=== PATIENT | male | born 2000 | race Caucasian/White ===

== ENCOUNTER 2018-03-26 20:42 | Emergency (ER) | payer SELFPAY ==
[2018-03-26 20:47] VITALS: BP 128/77; PULSE 80; TEMP 99.2; BMI 24.0
[2018-03-26] MEDS ORDERED: IBUPROFEN 400 MG TABLET (FP) PO ONE ×2 (21:17→21:22)
[2018-03-26] MEDS ORDERED: DEXAMETHASONE LIQUID 0.5 MG/5 ML 240 ML BULK BOTTLE PO ONE (21:17)
--- NOTE | 2018-03-26 21:18 | PDOC ---
History of Present Illness - General Chief Complaint: Tongue Swelling Stated Complaint: SWELLING TONGUE, SORE THROAT Time Seen by Provider: 03/26/18 21:14 History Source: Patient Exam Limitations: Language Barrier ([facility] [id number]) - History of Present Illness Initial Comments: 03/26/18 21:14 HISTORY OF PRESENT ILLNESS: This is a 17-year-old male without significant medical history of presents emergency Department with 1 week of sore throat who is now concerned as he has white growths in the back of his throat. He denies fevers, chills, abdominal pain, nausea, vomiting, cough. Patient just reports increased pain in his throat and difficulty swallowing. No recent travel or sick contacts. PAST MEDICAL HISTORY: Denies past medical history SURGICAL HISTORY: Denies ALLERGIES: No known drug allergies REVIEW OF SYSTEMS General/Constitutional: Denies fever or chills. Denies weakness, weight change. HEENT: Denies change in vision. Denies ear pain or discharge. +sore throat. Cardiovascular: Denies chest pain or shortness of breath. Respiratory: Denies cough, wheezing, or hemoptysis. Gastrointestinal: Denies nausea, vomiting, diarrhea or constipation. Denies rectal bleeding. Genitourinary: Denies dysuria, frequency, or change in urination. Musculoskeletal: Denies joint or muscle swelling or pain. Denies neck or back pain. Skin and breasts: Denies rash or easy bruising. Neurologic: Denies headache, vertigo, loss of consciousness, or loss of sensation. Psychiatric: Denies depression or anxiety. Endocrine: Denies increased thirst. Denies abnormal weight change. Hematologic/Lymphatic: Denies anemia, easy bleeding, or history of blood clots. Allergic/Immunologic: Denies hives or skin allergy. Denies latex allergy. PHYSICAL EXAM General Appearance: Well-appearing, appropriately dressed. No apparent distress , no intoxication. HEENT: EOMI, PERRLA, normal voice, TMs normal. No conjunctival pallor. No photophobia, scleral icterus. +3 tonsils noted with erythema and exudate present. No lesions noted to the oropharynx. Neck: Supple. Trachea midline. No tenderness, rigidity, carotid bruit, stridor , lymphadenopathy, or thyromegaly. Respiratory/Chest: Lungs CTAB. No shortness of breath, chest tenderness, respiratory distress, accessory muscle use. No crackles, rales, rhonchi, stridor , wheezing, dullness Cardiovascular: RRR. S1, S2. No JVD, murmur, bradycardia, tachycardia. Vascular Pulses: Dorsalis-Pedis (R): 2+, Dorsalis-Pedis (L): 2+ Gastrointestinal/Abdominal: Normal bowel sounds. Abdomen soft, non-distended. No tenderness or rebound tenderness. No organomegaly, pulsatile mass, guarding, hernia, hepatomegaly, splenomegaly. Lymphatic: No adenopathy, tenderness. Musculoskeletal/Extremities: Normal inspection. FROM of all extremities, normal capillary refill. Pelvis Stable. No CVA tenderness. No tenderness to extremities, pedal edema, swelling, erythema or deformity. Integumentary: Appropriate color, dry, warm. 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 Fully oriented, alert. Appropriate mood/affect. Motor strength 5/5. No appreciable EOM palsy, facial droop or sensory deficit. Past History - Past Medical History Allergies/Adverse Reactions: Allergies Allergy/AdvReac Type Severity Reaction Status Date / Time No Known Allergies Allergy Verified 03/26/18 20:47 Home Medications: Ambulatory Orders Amoxicillin - [Amoxicillin 500mg Capsule -] 500 mg PO BID #20 capsule 03/26/18 COPD: No - Suicide/Smoking/Psychosocial Hx Smoking History: Never smoked *Physical Exam - Vital Signs Last Vital Signs Temp Pulse Resp BP Pulse Ox 99.2 F 80 18 128/77 98 03/26/18 20:45 03/26/18 20:45 03/26/18 20:45 03/26/18 20:45 03/26/18 20:45 Medical Decision Making - Medical Decision Making 03/26/18 21:17 A/P: 17-year-old male with sore throat for one week +3 tonsils with erythema and exudates. No lesions present to oral mucosa Tender anterior cervical lymphadenopathy present Symptoms are consistent with a streptococcal infection. I'll perform a rapid strep testing to rule out bacterial etiology versus viral. Motrin 800 mg orally now Decadron 10 mg orally now 03/26/18 21:59 Rapid strep testing is positive for group A strep. I will discharge the patient home with prescription for amoxicillin. Patient verbalized understanding of discharge instructions. *DC/Admit/Observation/Transfer Diagnosis at time of Disposition: Strep pharyngitis - Discharge Dispostion Disposition: HOME Condition at time of disposition: Stable Decision to Admit order: No - Prescriptions Prescriptions: Amoxicillin - [Amoxicillin 500mg Capsule -] 500 mg PO BID #20 capsule - Referrals - Patient Instructions Additional Instructions: Take amoxicillin as prescribed. Salt water garggles. Throw away your toothbrush in 3 days and start using a new toothbrush. No sharing of drinks, utensils or toothbrushes. Take Motrin as directed by oven attendant's instructions. Return to ED for worsening fevers, worsening sore throat, chest pain, shortness of breath or any other concerns. [place] la amoxicilina segn lo prescrito. Grgaras de agua salada. Deseche lewis cepillo de dientes en 3 robison y comience a usar un cepillo de dientes nuevo. No compartir bebidas, utensilios o cepillos de dientes. [place] Motrin zara lo indican las instrucciones del fabricante. Regrese a la ED para empeorar las fiebres, empeorar el dolor de garganta, dolor en el pecho, falta de aliento o cualquier otra inquietud. - Post Discharge Activity Forms/Work/School Notes: Back to Work
[2018-03-26] MEDS ORDERED: DEXAMETHASONE SOD PHOSPHATE 10 MG/1 ML VIAL ONE (21:28)
== END 2018-03-26 22:04 | disposition home or self-care (01) ==
LOC: JERFT 20:42
DX: J02.0 Streptococcal pharyngitis (principal); B95.0 Streptococcus, group A, as the cause of diseases classified elsewhere
CPT/HCPCS: 87070; 87430; 99281-25

== ENCOUNTER 2018-07-06 19:57 | Emergency (ER) | payer SELFPAY ==
--- NOTE | 2018-07-06 20:14 | PDOC ---
Rapid Medical Evaluation Chief Complaint: Pain Time Seen by Provider: 07/06/18 20:10 Medical Evaluation: Allergies Allergy/AdvReac Type Severity Reaction Status Date / Time No Known Allergies Allergy Verified 03/26/18 20:47 07/06/18 20:10 I have performed a brief in-person evaluation of this patient. The patient presents with a chief complaint of: L testicular pain since yesterday with swelling. Pertient physical exam: Non swollen, non erythematous L tender testicle. I have ordered the following: testicular ultrasound R/O torsion The patient will proceed to the ED for further evaluation Discharge Disposition - Diagnosis Testicular pain, left - Referrals - Patient Instructions - Post Discharge Activity
[2018-07-06 20:15] VITALS: BP 140/71; PULSE 85; TEMP 99.3; BMI 22.3
--- NOTE | 2018-07-06 22:01 | PDOC ---
History of Present Illness - General Chief Complaint: Pain Stated Complaint: TESTICULAR PAIN Time Seen by Provider: 07/06/18 20:10 - History of Present Illness Initial Comments: 07/06/18 23:16 17-year-old male complaining of left testicular pain since 5 PM radiating up to the left groin. Denies urinary symptoms denies STI exposure. Denies new partners. Denies urinary symptoms denies flank pain, fevers/chills, nausea, vomiting, abdominal pain. Past History - Past Medical History Allergies/Adverse Reactions: Allergies Allergy/AdvReac Type Severity Reaction Status Date / Time No Known Allergies Allergy Verified 07/06/18 20:15 Home Medications: Ambulatory Orders Amoxicillin - [Amoxicillin 500mg Capsule -] 500 mg PO BID #20 capsule 03/26/18 COPD: No - Suicide/Smoking/Psychosocial Hx Smoking History: Never smoked Have you smoked in the past 12 months: No Information on smoking cessation initiated: No Hx Alcohol Use: No Drug/Substance Use Hx: No *Physical Exam - Vital Signs Last Vital Signs Temp Pulse Resp BP Pulse Ox 99.3 F 85 18 140/71 100 07/06/18 20:10 07/06/18 20:10 07/06/18 20:10 07/06/18 20:10 07/06/18 20:10 - Physical Exam General Appearance: Yes: Appropriately Dressed Gastrointestinal/Abdominal: positive: Normal Bowel Sounds, Soft. negative: Tender Male Genitalia: positive: normal genitalia, testicular tenderness (left testicular tenderness) Musculoskeletal: positive: Normal Inspection. negative: CVA Tenderness Integumentary: positive: Normal Color, Dry, Warm Neurologic: positive: Fully Oriented, Alert, Normal Mood/Affect, Normal Response Moderate Sedation - Procedure Monitoring Vital Signs: Procedure Monitoring Vital Signs Temperature 99.3 F 07/06/18 20:10 Pulse Rate 85 07/06/18 20:10 Respiratory Rate 18 07/06/18 20:10 Blood Pressure 140/71 07/06/18 20:10 O2 Sat by Pulse Oximetry (%) 100 07/06/18 20:10 Medical Decision Making - Medical Decision Making 07/06/18 23:35 all d/c instruction given occitan with nurse . patient verbalized understanding. strict return precautions also reviewed with patient. *DC/Admit/Observation/Transfer Diagnosis at time of Disposition: Testicular pain, left - Discharge Dispostion Disposition: HOME - Referrals Referrals: [facility] [Provider Group] - 24 hours [facility] [Outside] - 24 hours Nael Flowers MD [Staff Physician] - 24 hours - Patient Instructions Printed Discharge Instructions: How to Perform a Testicular Self-exam Additional Instructions: please follow up with a urologist or clinic for reevaluation within 24 hours. take ibuprofen every 6 hours as needed for pain Additional Instructions: * Please call your personal physician to report your Emergency Department visit and to report your progress, if any. * If there is no improvement in symptoms in 2 days call your physician. * Return to the Emergency Department for any worsening symptoms. - Post Discharge Activity Forms/Work/School Notes: Back to Work
[2018-07-06 22:54] LABS: URINE APPEARANCE CLEAR; URINE BILIRUBIN NEGATIVE (<2.0 mg/dL); URINE COLOR STRAW; URINE GLUCOSE (UA) NEGATIVE (NEGATIVE); URINE KETONE NEGATIVE (NEGATIVE); URINE LEUK ESTERASE NEGATIVE (NEGATIVE); URINE NITRITE NEGATIVE (NEGATIVE); URINE PROTEIN NEGATIVE (NEGATIVE); URINE UROBILINOGEN NEGATIVE mg/dL (0.2-1.0)
--- NOTE | 2018-07-06 23:23 | PDOC ---
*Physical Exam - Vital Signs Last Vital Signs Temp Pulse Resp BP Pulse Ox 99.3 F 85 18 140/71 100 07/06/18 20:10 07/06/18 20:10 07/06/18 20:10 07/06/18 20:10 07/06/18 20:10 ED Treatment Course - ADDITIONAL ORDERS Additional order review: Laboratory Results 07/06/18 22:15 Urine Color Straw Urine Appearance Clear Urine pH 8.0 Ur Specific [place] 1.012 Urine Protein Negative Urine Glucose (UA) Negative Urine Ketones Negative Urine Blood Negative Urine Nitrite Negative Urine Bilirubin Negative Urine Urobilinogen Negative Ur Leukocyte Esterase Negative Medical Decision Making - Medical Decision Making 07/06/18 23:23 Patient seen by the advanced practice provider under my direct supervision. Ancillary testing reviewed as necessary. I agree with plan as outlined by the advanced practice provider. *DC/Admit/Observation/Transfer Diagnosis at time of Disposition: Testicular pain, left - Referrals - Patient Instructions - Post Discharge Activity
[2018-07-06] MEDS ORDERED: IBUPROFEN 600 MG TABLET (FP) PO ONE (23:30)
== END 2018-07-07 01:32 | disposition home or self-care (01) ==
LOC: JER 19:57
DX: N50.812 Left testicular pain (principal)
CPT/HCPCS: 36415; 76870-TC; 81003; 87086; 87491; 87591; 99281-25

== ENCOUNTER 2023-10-28 01:40 | Emergency (ER) | payer SELFPAY ==
[2023-10-28 02:00] VITALS: BP 139/86; PULSE 74; RESP 18; TEMP 97.1; BMI 25.7
[2023-10-28] MEDS: CARBAMIDE PEROXIDE 6.5% OTIC 15 ML BOTTLE AD ONE (02:48)
== END 2023-10-28 02:56 | disposition home or self-care (01) ==
LOC: JER 01:40
DX: H92.01 Otalgia, right ear (principal); H61.21 Impacted cerumen, right ear
CPT/HCPCS: 99283-25

== ENCOUNTER 2023-10-28 07:22 | Emergency (ER) | payer SELFPAY | END 2023-10-28 07:30 | disposition left against medical advice (07) | LOC: JERFT 07:22 → JER 07:22 → JERFT 07:30 | DX: H92.01 Otalgia, right ear (principal) | CPT/HCPCS: 99281-25 ==